=== PATIENT | female | born 1960 | race Caucasian/White ===

== ENCOUNTER 2018-03-20 07:00 | Day surgery (SDC) | payer MEDICARE, OTHER ==
[2018-03-20] MEDS ORDERED: Sodium Chloride 0.9% 10 ML Syringe IV ONE (07:01)
[2018-03-20] MEDS ORDERED: Dexamethasone 4 MG/ML SDV IV ONE (07:01)
[2018-03-20] MEDS ORDERED: Midazolam 1 MG/ML 2 ML SDV IV ONE (07:01)
[2018-03-20] MEDS ORDERED: Moxifloxacin 0.5% Ophth Soln 3 ML Bottle EYELF ONE (07:41)
[2018-03-20] MEDS ORDERED: Proparacaine 0.5% Ophth Soln 15 ML Bottle EYELF ONE (07:41)
[2018-03-20] MEDS ORDERED: Dilation Soln 1 EA EACH EYELF ONE (07:41)
[2018-03-20] MEDS ORDERED: Phenylephrine 10% Ophth Soln 5 ML Bot EYELF ONE (07:41)
[2018-03-20] MEDS ORDERED: Povidone-Iodine 5% Sterile Ophth Soln 30 ML Bottle EYELF ONE ×2 (07:41→08:09)
[2018-03-20] MEDS ORDERED: Timolol Maleate 0.5% Ophth Soln 5 ML Bottle EYELF ONE (07:41)
[2018-03-20] MEDS ORDERED: Sodium Chloride 0.9% 10 ML Syringe FLUSH SCH (07:45)
[2018-03-20] MEDS ORDERED: Tetracaine HCl/PF 0.5% 4 ML Bottle EYELF ONE (08:09)
[2018-03-20] MEDS ORDERED: Lidocaine 1% 30 ML SDV INJECT ONE (08:10)
[2018-03-20] MEDS ORDERED: Balanced Salt Solution Ophth Irrig 500 ML Bottle IOCULAR ONE (08:15)
[2018-03-20] MEDS ORDERED: Chondroitin Sulfate/Hyaluronate Sodium Ophth Inj 0.75 ML Syringe EYELF ONE (08:15)
[2018-03-20] MEDS ORDERED: Vancomycin 500 MG SDV EYELF ONE (08:15)
[2018-03-20] MEDS ORDERED: Diclofenac Sodium 0.1% Ophth Soln 5 ML Bottle EYELF ONE (08:20)
[2018-03-20] MEDS ORDERED: Dexamethasone/Neomycin/Polymyxin B Ophth Oint 3.5 GM Tube EYELF ONE (08:20)
[2018-03-20] MEDS ORDERED: Apraclonidine 0.5% Ophth Soln 5 ML Bot EYELF ONE (08:20)
--- NOTE | 2018-03-20 08:47 | OR ---
DATE: PREOPERATIVE DIAGNOSIS: Visually significant mixed cataract, left eye. POSTOPERATIVE DIAGNOSIS: Visually significant mixed cataract, left eye. PROCEDURE: Extracapsular cataract extraction with intraocular lens implant, left eye. ANESTHESIA: Topical/local MAC. COMPLICATIONS: None. INDICATION: Ms. Shah was seen in the clinic. She has complained of blurred vision. She has difficulty both distance and near tasks. She has symptoms, left eye greater than the right eye. Examination reveals mixed nuclear and posterior subcapsular cataract. I explained options; offered surgery; and explained risks including the potential for infection, retinal detachment, loss of vision, and need for additional surgery amongst others. We discussed implant options. She has requested surgery with a monofocal implant. She understands that she may require glasses following surgery for best vision for some activities. OPERATIVE DESCRIPTION: After informed consent was obtained and the risks, benefits, and alternatives were explained, the patient was brought to the operative suite and topical anesthesia was administered. The patient was then prepped and draped in the sterile fashion, and attention was placed on the left eye. A sterile lid speculum was placed into the left eye to allow operative exposure. A full-thickness paracentesis was made in the temporal portion of the operative eye. Preservative-free lidocaine 0.1 mL was injected into the anterior chamber followed by viscoelastic. A full-thickness corneal incision was then made into the anterior chamber. A bent needle cystotome was used to create a small michel in the anterior capsule. The capsulorrhexis forceps was then used to create a 360-degree curvilinear capsulorrhexis. The nucleus was then removed using a phacoemulsification handpiece, and the remaining cortical material was then removed with irrigation and aspiration handpiece. Following removal of the cortical material, the capsular bag was then inspected and noted to be free of any holes or tears. Viscoelastic was then injected into the capsular bag, and the intraocular lens was inserted into the capsular bag. The viscoelastic material was then removed from both the anterior and posterior chambers and from behind the IOL. The lens and capsular bag were then reinspected. The IOL was well centered and the capsular bag intact. The wound and paracentesis sites were inspected and hydrated with balanced saline solution. Both were found to be self-sealing. The intraocular pressure was assessed digitally and found to be within normal range. A good red reflex was noted at the completion of the procedure. No complications occurred during the operation. At the completion of the procedure, Maxitrol, Voltaren, and Iopidine drops were placed into the operative eye. A sterile eye shield was placed over the operative eye, and the patient was transported to the postoperative recovery area having tolerated the procedure well. Postoperative instructions were given along with a postoperative appointment. The patient was advised to call with any questions or concerns. [facility] /[id number]
[2018-03-20 09:19] VITALS: BP 112/54
== END 2018-03-20 09:25 | disposition home or self-care (01) ==
LOC: DL.SDS 07:00
PROVIDERS: ATTEND Ophthalmology
DX: H25.812 Combined forms of age-related cataract, left eye (principal); I10 Essential (primary) hypertension; J44.9 Chronic obstructive pulmonary disease, unspecified; F17.210 Nicotine dependence, cigarettes, uncomplicated; F41.9 Anxiety disorder, unspecified; Z79.899 Other long term (current) drug therapy; Z88.8 Allergy status to other drugs, medicaments and biological substances
CPT/HCPCS: 00142; 66984; A9270; J1100; J2250; J3370; C1780

== ENCOUNTER 2018-04-17 09:56 | Day surgery (SDC) | payer MEDICARE, OTHER ==
[2018-04-17] MEDS ORDERED: Dexamethasone 4 MG/ML SDV IV ONE (09:57)
[2018-04-17] MEDS ORDERED: Sodium Chloride 0.9% 10 ML Syringe IV ONE (09:57)
[2018-04-17] MEDS ORDERED: Midazolam 1 MG/ML 2 ML SDV IV ONE (09:57)
[2018-04-17] MEDS ORDERED: Acetaminophen 325 MG Tab PO PRN (10:00)
[2018-04-17] MEDS ORDERED: Moxifloxacin 0.5% Ophth Soln 3 ML Bottle EYERT ONE (10:00)
[2018-04-17] MEDS ORDERED: Sodium Chloride 0.9% 10 ML Syringe FLUSH PRN (10:00)
[2018-04-17] MEDS ORDERED: Cataract Ophth Solution EYERT ONE (10:00)
[2018-04-17] MEDS ORDERED: Povidone-Iodine 5% Sterile Ophth Soln 30 ML Bottle EYERT ONE ×2 (10:00→10:40)
[2018-04-17] MEDS ORDERED: Timolol Maleate 0.5% Ophth Soln 5 ML Bottle EYERT ONE (10:00)
[2018-04-17] MEDS ORDERED: Ondansetron 4 MG/2 ML SDV IVPUSH PRN (10:00)
[2018-04-17] MEDS ORDERED: Phenylephrine 10% Ophth Soln 5 ML Bot EYERT ONE (10:00)
[2018-04-17] MEDS ORDERED: Phenylephrine 10% Ophth Soln 5 ML Bot EYERT PRN (10:00)
[2018-04-17] MEDS ORDERED: Proparacaine 0.5% Ophth Soln 15 ML Bottle EYERT ONE (10:00)
[2018-04-17] MEDS ORDERED: Lidocaine 1% 30 ML SDV ONE (10:40)
[2018-04-17] MEDS ORDERED: Tetracaine HCl/PF 0.5% 4 ML Bottle EYERT ONE (10:40)
[2018-04-17] MEDS ORDERED: Apraclonidine 0.5% Ophth Soln 5 ML Bot EYERT ONE (10:41)
[2018-04-17] MEDS ORDERED: Diclofenac Sodium 0.1% Ophth Soln 5 ML Bottle EYERT ONE (10:41)
[2018-04-17] MEDS ORDERED: Chondroitin Sulfate/Hyaluronate Sodium Ophth Inj 0.75 ML Syringe EYERT ONE (10:41)
[2018-04-17] MEDS ORDERED: Dexamethasone/Neomycin/Polymyxin B Ophth Oint 3.5 GM Tube EYERT ONE (10:41)
[2018-04-17] MEDS ORDERED: Vancomycin 500 MG SDV EYERT ONE (10:42)
[2018-04-17] MEDS ORDERED: Balanced Salt Solution Ophth Irrig 500 ML Bottle IOCULAR ONE (10:42)
--- NOTE | 2018-04-17 11:25 | OR ---
DATE: 04/17/2018 PREOPERATIVE DIAGNOSIS: Visually significant mixed cataract, right eye. POSTOPERATIVE DIAGNOSIS: Visually significant mixed cataract, right eye. PROCEDURE: Extracapsular cataract extraction with intraocular lens implant, right eye. ANESTHESIA: Topical/local MAC. COMPLICATIONS: None. INDICATION: The patient was seen in the clinic. Examination revealed visually significant cataract. She has had complaints of blurred vision and difficulty with both near and distance tasks. I explained options, offered cataract surgery, and I explained risks including, but not limited to, infection, retinal detachment, and loss of vision amongst others. We discussed implant options. She has requested a monofocal implant. She is comfortable wearing spectacle correction following surgery if necessary. OPERATIVE DESCRIPTION: After informed consent was obtained and the risks, benefits, and alternatives were explained, the patient was brought to the operative suite and topical anesthesia was administered. The patient was then prepped and draped in the sterile fashion, and attention was placed on the right eye. A sterile lid speculum was placed into the right eye to allow operative exposure. A full-thickness paracentesis was made in the temporal portion of the operative eye. Preservative-free lidocaine 0.1 mL was injected into the anterior chamber followed by viscoelastic. A full-thickness corneal incision was then made into the anterior chamber. A bent needle cystotome was used to create a small michel in the anterior capsule. The capsulorrhexis forceps was then used to create a 360-degree curvilinear capsulorrhexis. The nucleus was then removed using a phacoemulsification handpiece, and the remaining cortical material was then removed with irrigation and aspiration handpiece. Following removal of the cortical material, the capsular bag was then inspected and noted to be free of any holes or tears. Viscoelastic was then injected into the capsular bag, and the intraocular lens was inserted into the capsular bag. The viscoelastic material was then removed from both the anterior and posterior chambers and from behind the IOL. The lens and capsular bag were then reinspected. The IOL was well centered and the capsular bag intact. The wound and paracentesis sites were inspected and hydrated with balanced saline solution. Both were found to be self-sealing. The intraocular pressure was assessed digitally and found to be within normal range. A good red reflex was noted at the completion of the procedure. No complications occurred during the operation. At the completion of the procedure, Maxitrol, Voltaren, and Iopidine drops were placed into the operative eye. A sterile eye shield was placed over the operative eye, and the patient was transported to the postoperative recovery area having tolerated the procedure well. Postoperative instructions were given along with a postoperative appointment. The patient was advised to call with any questions or concerns. [facility] /[phone]
[2018-04-17 11:42] VITALS: BP 131/65
== END 2018-04-17 11:34 | disposition home or self-care (01) ==
LOC: DL.SDS 09:56
PROVIDERS: ATTEND Ophthalmology
DX: H25.811 Combined forms of age-related cataract, right eye (principal); I10 Essential (primary) hypertension; J44.9 Chronic obstructive pulmonary disease, unspecified; F17.210 Nicotine dependence, cigarettes, uncomplicated; F41.9 Anxiety disorder, unspecified; Z79.899 Other long term (current) drug therapy; Z88.8 Allergy status to other drugs, medicaments and biological substances
CPT/HCPCS: 00142; A9270-GY; C1780; J1100; J2001; J2250; J3370

== ENCOUNTER 2020-10-05 16:15 | Emergency (ER) | payer MEDICARE, OTHER ==
[2020-10-05] MEDS ORDERED: Albuterol/Ipratropium 3.0-0.5 MG/3 ML Neb Soln ONE (17:25)
[2020-10-05 17:28] VITALS: BP 101/79
[2020-10-05] MEDS ORDERED: Albuterol/Ipratropium 3.0-0.5 MG/3 ML Neb Soln NEB ONE (17:31)
[2020-10-05] MEDS ORDERED: Sodium Chloride 0.9% 10 ML Syringe FLUSH PRN (17:31)
[2020-10-05] MEDS ORDERED: Levofloxacin/Dextrose 5%-Water 750 MG in Premix Bag 1 BAG IV ONE (17:32)
[2020-10-05] MEDS ORDERED: Magnesium Sulfate/Water 2 GM in Premix Bag 1 BAG IV ONE ×2 (17:35→17:37)
[2020-10-05 17:41] VITALS: PULSE 110
[2020-10-05 17:49] LABS: PTT,PARTIAL THROMBOPLSTIN TIME 27.4 SEC (22.0-34.0)
[2020-10-05 17:52] LABS: ANION GAP 16.4 mEq/L (7-13); CHLORIDE,CL 101 mmol/L (98-107); SODIUM,NA 137 mmol/L (136-145)
[2020-10-05] MEDS ORDERED: Heparin Sodium 5,000 Units/ML Vial IVPUSH ONE (18:03)
[2020-10-05] MEDS ORDERED: Aspirin 81 MG Tab.Chew PO ONE (18:03)
[2020-10-05] MEDS ORDERED: Heparin Sodium/0.45% NaCl 25,000 UNITS/500 ML BAG IV SCH (18:15)
[2020-10-05 18:19] LABS: CORONAVIRUS COVID-19 NAA NEGATIVE (NEGATIVE)
--- NOTE | 2020-10-05 18:37 | CR ---
PROCEDURE INFORMATION: Exam: XR Chest Exam date and time: 10/05/2020 6:22 PM Age: 60 years old Clinical indication: Pain; Left-sided; Additional info: Chest pain TECHNIQUE: Imaging protocol: XR of the chest. Views: 1 view. Total images: 1 COMPARISON: No relevant prior studies available. FINDINGS: Lungs: Unremarkable. No consolidation. Pleural spaces: Unremarkable. No pleural effusion. No pneumothorax. Heart/Mediastinum: Unremarkable. No cardiomegaly. Bones/joints: Unremarkable. IMPRESSION: No acute findings.
--- NOTE | 2020-10-05 18:48 | EDM.PDOC ---
Scribed by Janel Al 10/05/20 [id number] for Barbara Bravo MD ED HPI GENERAL MEDICAL PROBLEM - General Chief Complaint: Respiratory Problem Stated Complaint: HARDLY BREATH, CHEST, DIZZY Time Seen by Provider: 10/05/20 17:15 Source of Information: Reports: Patient History Limitations: Reports: No Limitations - History of Present Illness INITIAL COMMENTS - FREE TEXT/NARRATIVE: 60 y/o F c/o pain in the upper back and across the shoulders with shortness of breath x 3 days. Pt states the symptoms came on gradually and have become so severe that she is unable to breathe effectively. Hx of COPD, rheumatic heart disease. Reports productive green sputum. Still smokes cigarettes. Denies fever, cough, chills, drugs, etoh, cp, abd pn, vision prob, pelvic pn, extremity pn. Onset: Gradual Duration: Day(s): Location: Reports: Chest Quality: Reports: Ache Severity: Severe Improves with: Reports: None Worsens with: Reports: Movement Chest Pain Score (Numeric/FACES): 10 - Related Data Allergies Allergy/AdvReac Type Severity Reaction Status Date / Time sertraline [From Zoloft] AdvReac Intermediate Other Verified 04/16/18 14:58 tramadol AdvReac Mild Nausea Verified 04/16/18 14:58 Home Meds: Home Meds Albuterol [Proventil HFA] 2 puff INH Q6H 03/18/18 [History] Baclofen 10 mg PO DAILY 03/18/18 [History] Calcium Carbonate/Vitamin D3 [Calcium 250+D] 1 tab PO BID 03/18/18 [History] Ibuprofen 800 mg PO Q6H 03/18/18 [History] Naproxen Sodium [Aleve] 220 mg PO .PRN 03/18/18 [History] Venlafaxine [Effexor] 37.5 mg PO DAILY 03/18/18 [History] Ketorolac [Acular 0.5% Ophth Soln] 1 drop EYELF BID 03/20/18 [History] Moxifloxacin [Vigamox 0.5% Ophth Soln] 1 - 2 drop EYELF QID 03/20/18 [History] Prednisolone Acetate/Pf [Prednisolone Acet 1% Eye Drop] 1 drop EYELF DAILY 03/20/18 [History] Amitriptyline [Elavil] 25 mg PO DAILY 04/16/18 [History] Past Medical History HEENT History: Reports: Cataract, Impaired Vision Cardiovascular History: Reports: Arrhythmia, Hypertension, Other (See Below) Other Cardiovascular History: rheumatic heart disease Respiratory History: Reports: COPD Gastrointestinal History: Reports: Diverticulosis, GERD Genitourinary History: Reports: None [employer]ICIAN History: Reports: Musculoskeletal History: Reports: Arthritis, Fibromyalgia, Other (See Below) Other Musculoskeletal History: Treated for fibromyalgia not officially dx. Restless leg Neurological History: Reports: None Psychiatric History: Reports: Anxiety, Panic Attack Endocrine/Metabolic History: Reports: None Hematologic History: Reports: None Immunologic History: Reports: None Oncologic (Cancer) History: Reports: None Dermatologic History: Reports: Other (See Below) Other Dermatologic History: Itching with anxiety, and showering - Infectious Disease History Infectious Disease History: Reports: Chicken Pox, Measles, Mumps - Past Surgical History GI Surgical History: Social & Family History - Family History Family Medical History: No Pertinent Family History - Tobacco Use Tobacco Use Status *Q: Current Every Day Tobacco User Tobacco Use Within Last Twelve Months: Cigarettes - Caffeine Use Caffeine Use: Reports: Coffee Other Caffeine Use: 2 cups dialy - Living Situation & Occupation Living situation: Reports: , with Spouse ED ROS GENERAL - Review of Systems Review Of Systems: Comprehensive ROS is negative, except as noted in HPI. ED EXAM, GENERAL - Physical Exam Exam: See Below Exam Limited By: No Limitations General Appearance: Alert, Mild Distress, Thin Eye Exam: Bilateral Eye: Normal Inspection Ears: Hearing Grossly Normal Nose: Normal Inspection, Normal Mucosa, No Blood Throat/Mouth: Normal Inspection, Normal Lips, Normal Teeth, Normal Gums, Normal Oropharynx, Normal Voice, No Airway Compromise Head: Atraumatic, Normocephalic Neck: Normal Inspection, Supple, Non-Tender, Full Range of Motion Respiratory/Chest: Chest Non-Tender, Respiratory Distress, Decreased Breath Sounds, Other (diminished throughout). No: Crackles, Rales, Rhonchi, Wheezing Cardiovascular: Tachycardia, Extra Beats, Irregularly Irregular GI/Abdominal: Soft, Non-Tender (Female) Exam: Deferred Rectal (Female) Exam: Deferred Back Exam: Normal Inspection, Full Range of Motion Extremities: Normal Inspection, Normal Range of Motion, Non-Tender, Normal Capillary Refill, No Pedal Edema Neurological: Alert, Oriented, CN II-XII Intact, Normal Cognition, Normal Gait, Normal Reflexes, No Motor/Sensory Deficits Psychiatric: Normal Affect, Normal Mood Skin Exam: Warm, Dry, Intact, Normal Color, No Rash #1 Interpretation EKG Date: 10/05/20 Time: 17:17 Rhythm: Other (SR with multifocal PVCs in couplets and triplets) Rate (Beats/Min): 116 [place]: Normal P-Wave: Present QRS: Wide ST-T: Normal QT: Normal Comparison: NA - No Prior EKG #2 Interpretation EKG Date: 10/05/20 Time: 18:13 Rhythm: Other (SR with multifocal PVCs in couplets and triplets) Rate (Beats/Min): 143 [place]: Normal P-Wave: Present QRS: Wide Comparison: No Change Course - Vital Signs Last Recorded V/S: Last Vital Signs Temp 99.4 F 10/05/20 17:24 Pulse 110 H 10/05/20 17:40 Resp 34 H 10/05/20 17:24 BP 101/79 10/05/20 17:24 Pulse Ox 97 10/05/20 17:24 - Orders/Labs/Meds Orders: Active Orders 24 hr Category Date Time Status EKG 12 Lead [EKG Documentation Completion] [RC] STAT Care 10/05/20 17:30 Active EKG 12 Lead [EKG Documentation Completion] [RC] STAT Care 10/05/20 18:11 Ordered EKG 12 Lead [EKG Documentation Completion] [RC] URGENT Care 10/05/20 17:31 Active Peripheral IV Care [RC] . DIRECTED Care 10/05/20 17:31 Active RT Aerosol Therapy [RC] ASDIRECTED Care 10/05/20 17:32 Active Chest 1V Frontal [CR] Stat Exams 10/05/20 18:09 Ordered CULTURE BLOOD [BC] Stat Lab 10/05/20 17:18 Received CULTURE BLOOD [BC] Stat Lab 10/05/20 17:31 Ordered REFLEX LACTIC ACID YES OR NO [CHEM] Routine Lab 10/05/20 17:57 Received UA RFX ANNELISE AND CULT IF INDIC [URIN] Stat Lab 10/05/20 17:31 Ordered Heparin Sodium/0.45% NaCl [Heparin 25,000 Units in 1/2 Med 10/05/20 18:15 Active NS 500 ML] 25,000 units in 500 ml IV TITRATE Sodium Chloride 0.9% [Saline Flush] Med 10/05/20 17:31 Active 10 ml FLUSH ASDIRECTED PRN Blood Culture x2 Reflex Set [OM.PC] Stat Oth 10/05/20 17:30 Ordered Peripheral IV Insertion Adult [OM.PC] Stat Oth 10/05/20 17:30 Ordered Medication Orders Heparin Sodium/Sodium Chloride (Heparin 25,000 Units In 1/2 Ns 500 Ml) 25,000 units in 500 mls @ 10.886 mls/hr IV TITRATE KIRAN; Protocol Last Admin: 10/05/20 18:27 Dose: 12 units/kg/hr, 10.886 mls/hr Documented by: JORGE A Cosigned by: LASHONDA Sodium Chloride (Sodium Chloride 0.9% 10 Ml Syringe) 10 ml FLUSH ASDIRECTED PRN PRN Reason: Keep Vein Open Labs: Laboratory Tests 10/05/20 10/05/20 10/05/20 Range/Units 17:18 17:18 17:18 WBC 8.1 (5.0-10.0) 10^3/uL RBC 3.62 L (4.2-5.4) 10^6/uL Hgb 13.3 (12.0-16.0) g/dL Hct 37.2 (37.0-47.0) % MCV 102.8 H (80-100) fL MCH 36.7 H (27.0-34.0) pg MCHC 35.8 H (33.0-35.0) g/dL Plt Count 117 L (150-450) 10^3/uL Neut % (Auto) 50.9 (42.2-75.2) % Lymph % (Auto) 25.8 (20.5-50.1) % Simpson % (Auto) 20.6 H (2-8) % Eos % (Auto) 1.8 (1.0-3.0) % Baso % (Auto) 0.9 (0.0-1.0) % PT 14.7 H (9.0-12.0) SEC INR 1.5 H (0.9-1.2) APTT 27.4 (22.0-34.0) SEC Sodium (136-145) mmol/L Potassium (3.5-5.1) mmol/L Chloride (98-107) mmol/L Carbon Dioxide (21-32) mmol/L Anion Gap (7-13) mEq/L BUN (7-18) mg/dL Creatinine (0.55-1.02) mg/dL Est Cr Clr Drug Dosing mL/min Estimated GFR (MDRD) BUN/Creatinine Ratio (No establ ref range) Glucose (70-99) mg/dL Lactic Acid (0.4-2.0) mmol/L Calcium (8.5-10.1) mg/dL Magnesium (1.8-2.4) mg/dL Total Bilirubin (0.2-1.0) mg/dL AST (15-37) U/L ALT (14-59) U/L Alkaline Phosphatase (46-116) U/L Troponin I High Sens (<=51) pg/mL C-Reactive Protein (0.0-0.9) mg/dL B-Natriuretic Peptide (0-100) pg/ml Total Protein (6.4-8.2) g/dL Albumin (3.4-5.0) g/dL Globulin Albumin/Globulin Ratio Ethyl Alcohol (0) mg/dL Influenza Type A RNA Negative (NEGATIVE) Influenza Type B RNA Negative (NEGATIVE) SARS-CoV-2 RNA (MARY ELLEN) Negative (NEGATIVE) 10/05/20 10/05/20 Range/Units 17:18 17:18 WBC (5.0-10.0) 10^3/uL RBC (4.2-5.4) 10^6/uL Hgb (12.0-16.0) g/dL Hct (37.0-47.0) % MCV (80-100) fL MCH (27.0-34.0) pg MCHC (33.0-35.0) g/dL Plt Count (150-450) 10^3/uL Neut % (Auto) (42.2-75.2) % Lymph % (Auto) (20.5-50.1) % Simpson % (Auto) (2-8) % Eos % (Auto) (1.0-3.0) % Baso % (Auto) (0.0-1.0) % PT (9.0-12.0) SEC INR (0.9-1.2) APTT (22.0-34.0) SEC Sodium 137 (136-145) mmol/L Potassium 3.4 L (3.5-5.1) mmol/L Chloride 101 (98-107) mmol/L Carbon Dioxide 23 (21-32) mmol/L Anion Gap 16.4 H (7-13) mEq/L BUN 20 H (7-18) mg/dL Creatinine 1.22 H (0.55-1.02) mg/dL Est Cr Clr Drug Dosing 34.24 mL/min Estimated GFR (MDRD) 45 BUN/Creatinine Ratio 16.4 (No establ ref range) Glucose 121 H (70-99) mg/dL Lactic Acid 3.9 H* (0.4-2.0) mmol/L Calcium 8.5 (8.5-10.1) mg/dL Magnesium 0.9 L (1.8-2.4) mg/dL Total Bilirubin 3.1 H (0.2-1.0) mg/dL AST 64 H (15-37) U/L ALT 34 (14-59) U/L Alkaline Phosphatase 149 H (46-116) U/L Troponin I High Sens 243 H* (<=51) pg/mL C-Reactive Protein 0.2 (0.0-0.9) mg/dL B-Natriuretic Peptide 383 H (0-100) pg/ml Total Protein 7.4 (6.4-8.2) g/dL Albumin 3.0 L (3.4-5.0) g/dL Globulin 4.4 Albumin/Globulin Ratio 0.68 Ethyl Alcohol < 3 (0) mg/dL Influenza Type A RNA (NEGATIVE) Influenza Type B RNA (NEGATIVE) SARS-CoV-2 RNA (MARY ELLEN) (NEGATIVE) Meds: Medications Generic Name Dose Route Start Last Admin Trade Name Freq PRN Reason Stop Dose Admin Heparin Sodium/Sodium Chloride 25,000 units in 500 mls @ 10.886 mls/hr 10/05/20 18:15 10/05/20 18:27 Heparin 25,000 Units In 1/2 Ns 500 Ml IV 12 units/kg/hr TITRATE KIRAN 10.886 mls/hr Administration Protocol 12 UNITS/KG/HR Sodium Chloride 10 ml 10/05/20 17:31 Sodium Chloride 0.9% 10 Ml Syringe FLUSH ASDIRECTED PRN Keep Vein Open Discontinued Medications Generic Name Dose Route Start Last Admin Trade Name Zainab PRN Reason Stop Dose Admin Albuterol/Ipratropium Confirm 10/05/20 17:25 10/05/20 17:39 Albuterol/Ipratropium 3.0-0.5 Mg/3 Ml Neb Soln Administered 10/05/20 17:26 3 ml Dose Administration 3 ml .ROUTE .STK-MED ONE Albuterol/Ipratropium 3 ml 10/05/20 17:31 10/05/20 18:05 Albuterol/Ipratropium 3.0-0.5 Mg/3 Ml Neb Soln NEB 10/05/20 17:32 Not Given ONETIME ONE Aspirin 324 mg 10/05/20 18:03 10/05/20 18:08 Aspirin 81 Mg Tab.Chew PO 10/05/20 18:04 324 mg ONETIME ONE Administration Heparin Sodium (Porcine) 3,000 units 10/05/20 18:03 10/05/20 18:31 Heparin Sodium 5,000 Units/Ml Vial IVPUSH 10/05/20 18:04 3,000 units .BOLUS ONE Administration Protocol Levofloxacin/Dextrose 750 mg/ 150 mls @ 100 mls/hr 10/05/20 17:32 10/05/20 18:33 Premix IV 10/05/20 19:01 Not Given ONETIME ONE Magnesium Sulfate 2 gm/ Premix 50 mls @ 100 mls/hr 10/05/20 17:35 10/05/20 18:04 IV 10/05/20 18:04 100 mls/hr ONETIME ONE Administration Magnesium Sulfate 2 gm/ Premix 50 mls @ 100 mls/hr 10/05/20 17:37 10/05/20 18:06 IV 10/05/20 18:06 Not Given ONETIME ONE - Radiology Interpretation Free Text/Narrative:: [facility] Final Radiology Report Call: [phone] assistance Online chat: [email or web address] Name: ALBA CORONA Age: 60Years F Date: 10/05/2020 SSN: -- : 1960 Study: CR CHEST 1V FRONTAL Requesting Physician: BARBARA BRAVO Images: 1 Addl Studies: Provided Clinical History: chest pain Contrast: Contrast Medium: Contrast Amount: Contrast Method: CONFIDENTIALITY STATEMENT This report is intended only for use by the referring physician, and only in accordance with law. If you received this in error, call [phone]. Page 1 of 1 PROCEDURE INFORMATION: Exam: XR Chest Exam date and time: 10/05/2020 6:22 PM Age: 60 years old Clinical indication: Pain; Left-sided; Additional info: Chest pain TECHNIQUE: Imaging protocol: XR of the chest. Views: 1 view. Total images: 1 COMPARISON: No relevant prior studies available. FINDINGS: Lungs: Unremarkable. No consolidation. Pleural spaces: Unremarkable. No pleural effusion. No pneumothorax. Heart/Mediastinum: Unremarkable. No cardiomegaly. Bones/joints: Unremarkable. IMPRESSION: No acute findings. Thank you for allowing us to participate in the care of your patient. Dictated and Authenticated by: Marcos Issa MD 10/05/2020 6:37 PM Central Time ([place] & [place]) - Re-Assessments/Exams Free Text/Narrative Re-Assessment/Exam: 10/05/20 18:46 Dr. Christensen consulted via [employer] [facility], advises ASA and Heparin are okay to continue, and pt may be transferred for admission to a hospitalist. Departure - Departure Time of Disposition: 18:39 Disposition: DC/Tfer to Acute Hospital 02 Condition: Serious, Undetermined Clinical Impression: Non-STEMI (non-ST elevated myocardial infarction), Shortness of breath - Discharge Information *PRESCRIPTION DRUG MONITORING PROGRAM REVIEWED*: Not Applicable *COPY OF PRESCRIPTION DRUG MONITORING REPORT IN PATIENT YAMIL: Not Applicable Forms: ED Department Discharge, Interfacility Transfer KARISSA Sepsis Event Note (ED) - Focused Exam Vital Signs: Vital Signs Temp Pulse Resp BP Pulse Ox 10/05/20 17:40 110 H 10/05/20 17:24 99.4 F 115 H 34 H 101/79 97 - My Orders Last 24 Hours: My Active Orders 10/05/20 17:18 CULTURE BLOOD [BC] Stat 10/05/20 17:30 EKG 12 Lead [EKG Documentation Completion] [RC] STAT Blood Culture x2 Reflex Set [OM.PC] Stat Peripheral IV Insertion Adult [OM.PC] Stat 10/05/20 17:31 EKG 12 Lead [EKG Documentation Completion] [RC] URGENT Peripheral IV Care [RC] . DIRECTED CULTURE BLOOD [BC] Stat UA RFX ANNELISE AND CULT IF INDIC [URIN] Stat Sodium Chloride 0.9% [Saline Flush] 10 ml FLUSH ASDIRECTED PRN 10/05/20 17:32 RT Aerosol Therapy [RC] ASDIRECTED 10/05/20 17:57 REFLEX LACTIC ACID YES OR NO [CHEM] Routine 10/05/20 18:09 Chest 1V Frontal [CR] Stat 10/05/20 18:11 EKG 12 Lead [EKG Documentation Completion] [RC] STAT 10/05/20 18:15 Heparin Sodium/0.45% NaCl [Heparin 25,000 Units in 1/2 NS 500 ML] 25,000 units in 500 ml IV TITRATE - Assessment/Plan Last 24 Hours: My Active Orders 10/05/20 17:18 CULTURE BLOOD [BC] Stat 10/05/20 17:30 EKG 12 Lead [EKG Documentation Completion] [RC] STAT Blood Culture x2 Reflex Set [OM.PC] Stat Peripheral IV Insertion Adult [OM.PC] Stat 10/05/20 17:31 EKG 12 Lead [EKG Documentation Completion] [RC] URGENT Peripheral IV Care [RC] . DIRECTED CULTURE BLOOD [BC] Stat UA RFX ANNELISE AND CULT IF INDIC [URIN] Stat Sodium Chloride 0.9% [Saline Flush] 10 ml FLUSH ASDIRECTED PRN 10/05/20 17:32 RT Aerosol Therapy [RC] ASDIRECTED 10/05/20 17:57 REFLEX LACTIC ACID YES OR NO [CHEM] Routine 10/05/20 18:09 Chest 1V Frontal [CR] Stat 10/05/20 18:11 EKG 12 Lead [EKG Documentation Completion] [RC] STAT 10/05/20 18:15 Heparin Sodium/0.45% NaCl [Heparin 25,000 Units in 1/2 NS 500 ML] 25,000 units in 500 ml IV TITRATE I have read and agree with the documentation that has been completed regarding this visit. By signing this record, I attest that the documentation was completed in my physical presence and is an accurate record of the encounter.
== END 2020-10-05 19:08 ==
LOC: DL.ED 16:15
DX: I21.4 Non-ST elevation (NSTEMI) myocardial infarction (principal); J44.9 Chronic obstructive pulmonary disease, unspecified; I10 Essential (primary) hypertension; F17.210 Nicotine dependence, cigarettes, uncomplicated; Z88.5 Allergy status to narcotic agent; Z20.822 Contact with and (suspected) exposure to COVID-19; Z72.0 Tobacco use; Z88.8 Allergy status to other drugs, medicaments and biological substances
CPT/HCPCS: 0240U; 36415; 71045; 80053; 80307; 83605; 83735; 83880; 84484; 85025; 85610; 85730; 86140; 87040; 93005; 94640; 96365; 96368; 99285; A9270; J1644; J3475; J7620-GY

== ENCOUNTER 2021-07-21 19:24 | Emergency (ER) | payer MEDICARE, OTHER ==
[2021-07-21 19:20] VITALS: BP 113/60; PULSE 92
[~2021-07-21 19:24] MED LIST: MVI, Adult with Vitamin K 10 ML, Folic Acid 1 MG, Thiamine 100 MG in Lactated Ringers 1... IV ONE
[2021-07-21 20:19] LABS: ANION GAP 17.3 mEq/L (7-13)
[2021-07-21 20:39] LABS: AMPHETAMINES,URINE NEGATIVE (NEGATIVE); BARBITURATES,URINE NEGATIVE (NEGATIVE); BENZODIAZEPINE,URINE NEGATIVE (NEGATIVE); MDMA (ECSTASY), URINE NEGATIVE (NEGATIVE); METHADONE,URINE NEGATIVE (NEGATIVE); METHAMPHETAMINES,URINE NEGATIVE (NEGATIVE); OPIATES,URINE NEGATIVE (NEGATIVE); OXYCODONE,URINE NEGATIVE (NEGATIVE); PHENCYCLIDINE,URINE NEGATIVE (NEGATIVE); TCA,URINE NEGATIVE (NEGATIVE)
== END 2021-07-21 20:30 | disposition left against medical advice (07) ==
LOC: DL.ED 19:24
DX: F10.920 Alcohol use, unspecified with intoxication, uncomplicated (principal); R74.8 Abnormal levels of other serum enzymes; J44.9 Chronic obstructive pulmonary disease, unspecified; I10 Essential (primary) hypertension; Z88.8 Allergy status to other drugs, medicaments and biological substances; Z88.5 Allergy status to narcotic agent; Z79.899 Other long term (current) drug therapy
CPT/HCPCS: 36415; 80053; 80143; 80179; 80305-QW; 80307; 81001; 82150; 82550; 83690; 84484; 85025; 85610; 93005; 96365; 99284-25; J3411; J3490; J7120

== ENCOUNTER 2021-09-04 06:28 | Emergency (ER) | payer MEDICARE, OTHER ==
[2021-09-04] MEDS ORDERED: Sodium Chloride 0.9% 1,000 ML IV ONE (06:31)
[2021-09-04 06:43] VITALS: BP 143/75; PULSE 80
[2021-09-04] MEDS ORDERED: Pantoprazole 40 MG Vial IVPUSH ONE (07:25)
[2021-09-04] MEDS ORDERED: MVI, Adult with Vitamin K 10 ML, Thiamine 100 MG, Folic Acid 1 MG in Lactated Ringers 1... IV ONE ×4 (07:25)
[2021-09-04] MEDS ORDERED: Meclizine 12.5 MG Tab PO ONE (07:26)
[2021-09-04] MEDS ORDERED: Ondansetron 4 MG/2 ML SDV IV ONE (07:26)
[2021-09-04 07:43] LABS: ANION GAP 16.1 mEq/L (7-13)
[2021-09-04] MEDS ORDERED: Aspirin 81 MG Tab.Chew PO ONE (08:01)
[2021-09-04] MEDS ORDERED: Heparin Sodium 5,000 Units/ML Vial IVPUSH ONE (08:03)
[2021-09-04] MEDS ORDERED: Magnesium Sulfate/Water 2 GM in Premix Bag 1 BAG IV ONE ×2 (08:07→08:11)
[2021-09-04 08:15] LABS: AMPHETAMINES,URINE NEGATIVE (NEGATIVE); BARBITURATES,URINE NEGATIVE (NEGATIVE); BENZODIAZEPINE,URINE NEGATIVE (NEGATIVE); MDMA (ECSTASY), URINE NEGATIVE (NEGATIVE); METHADONE,URINE NEGATIVE (NEGATIVE); METHAMPHETAMINES,URINE NEGATIVE (NEGATIVE); OPIATES,URINE NEGATIVE (NEGATIVE); OXYCODONE,URINE NEGATIVE (NEGATIVE); PHENCYCLIDINE,URINE NEGATIVE (NEGATIVE); TCA,URINE NEGATIVE (NEGATIVE)
[2021-09-04] MEDS ORDERED: Heparin Sodium/0.45% NaCl 25,000 UNITS/500 ML BAG IV SCH (08:15)
[2021-09-04] MEDS ORDERED: Potassium Chloride 20 MEQ in Premix Bag 1 BAG IV ONE (10:13)
[2021-09-04] MEDS ORDERED: Lidocaine 1% 30 ML SDV ONE (10:14)
== END 2021-09-04 11:14 ==
LOC: DL.ED 06:28
DX: I21.4 Non-ST elevation (NSTEMI) myocardial infarction (principal); R55 Syncope and collapse; E83.42 Hypomagnesemia; J44.9 Chronic obstructive pulmonary disease, unspecified; I10 Essential (primary) hypertension; F17.210 Nicotine dependence, cigarettes, uncomplicated; Z88.5 Allergy status to narcotic agent; Z88.8 Allergy status to other drugs, medicaments and biological substances; Z20.822 Contact with and (suspected) exposure to COVID-19
CPT/HCPCS: 36415; 70450; 71250; 72125; 74176; 80053; 80305; 80307; 81001; 82150; 82272; 83605; 83690; 83735; 83880; 84443; 84484; 85025; 85379; 85610; 85730; 87040; 93005; 93010; 96361; 96365; 96366; 96367; 96368; 96375; 99285; A9270; C9113; J1644; J2405; J3411; J3475; J3480; J7030; J7120; U0002; J3490